=== PATIENT | male | born 1985 | race African-American/Black ===

== ENCOUNTER 2022-12-28 02:58 | Emergency (ER) | payer OTHER ==
[~2022-12-28] VITALS: Ht 185.4 cm; Wt 95.0 kg
[2022-12-28 04:16] LABS: APPEARANCE,URINE CLEAR (CLEAR); BILIRUBIN,URINE NEGATIVE (NEGATIVE); COLOR,URINE LIGHT YELLOW (YELLOW); GLUCOSE, URINE (UA) NEGATIVE (NEGATIVE); KETONES,URINE NEGATIVE (NEGATIVE); LEUKOCYTE ESTERASE ,URINE NEGATIVE (NEGATIVE); NITRATE,URINE NEGATIVE (NEGATIVE); OCCULT BLOOD,URINE NEGATIVE (NEGATIVE); PH,URINE 5.5 (5.0-8.0); PROTEIN,URINE 30-70 mg/dL (NEGATIVE); SPECIFIC GRAVITIY, URINE 1.016 (1.003-1.030); UROBILINOGEN,URINE <=1.0 mg/dL (<=1.0)
[2022-12-28 04:19] LABS: BACTERIA,URINE None Seen /HPF (None Seen); RBC,URINE None Seen /HPF (0-2); SQUAMOUS EPITHELIAL CELL,UR Rare /LPF (None Seen); WBC,URINE None Seen /HPF (0-5)
[2022-12-28] MEDS ORDERED: LIDOCAINE/PF 1% 2 ML VIAL IM ONE (04:30)
[2022-12-28] MEDS ORDERED: CefTRIAXone SODIUM 1 GM/VIAL IM ONE (04:30)
[2022-12-28] MEDS ORDERED: IBUPROFEN 800 MG TABLET PO ONE (04:30)
[2022-12-28 06:40] VITALS: TEMP 96.8
[2022-12-28 08:00] VITALS: BP 142/85; PULSE 88; RESP 18
[2022-12-28] MEDS ORDERED: DOXY-354 PO (08:36)
== END 2022-12-28 09:07 | disposition home or self-care (01) ==
LOC: EMS 03:02
DX: N49.8 Inflammatory disorders of other specified male genital organs (principal)
CPT/HCPCS: 99285; 81001; 87086; 87186; 76870; 96372; J0696; J3490

== ENCOUNTER 2023-01-26 15:55 | Emergency (ER) | payer MEDICAID, OTHER ==
[~2023-01-26] VITALS: Ht 185.4 cm; Wt 84.1 kg
[~2023-01-26 15:55] MED LIST: DOXY-354 PO
[2023-01-26 17:46] LABS: BASOPHILS % (AUTO) 0.8 % (0.0-2.0); EOSINOPHILS % (AUTO) 10.1 % (1.0-6.0); HEMATOCRIT 38.2 % (41-53); HEMOGLOBIN 13.1 g/dL (13.5-17.5); LYMPHOCYTES # (AUTO) 1.3 K/uL (1.0-4.8); LYMPHOCYTES % (AUTO) 27.4 % (22.0-44.0); MEAN CORPUSCULAR HEMOGLOBIN 32.2 pg (26.0-34.0); MEAN CORPUSCULAR HGB CONC 34.3 G/dL (31.0-37.0); MEAN CORPUSCULAR VOLUME 94 fL (80-100); MONOCYTES # (AUTO) 0.2 K/uL (0.1-1.0); MONOCYTES % (AUTO) 5.2 % (2.0-9.0); NEUTROPHILS # (AUTO) 2.6 K/uL (1.8-7.7); NEUTROPHILS % (AUTO) 56.5 % (40.0-70.0); PLATELET COUNT (AUTO) 301 K/uL (150-450); RED BLOOD CELL COUNT(AUTO) 4.08 MIL/uL (4.50-5.90); RED CELL DISTRIBUTION WIDTH 14.2 % (11.5-14.5); WHITE BLOOD COUNT (AUTO) 4.6 K/uL (4.5-11.0)
[2023-01-26 17:53] LABS: ANION GAP 7 mmol/L (8-16); CALCIUM, TOTAL 9.3 mg/dL (8.8-10.5); CARBON DIOXIDE 27 mmol/L (22-29); CHLORIDE 103 mmol/L (98-107); CREATININE 1.03 mg/dL (0.60-1.30); GLOMERULAR FILTR. RATE CALC > 60 mL/min (>60); GLUCOSE,RANDOM 80 mg/dL (70-110); POTASSIUM 3.5 mmol/L (3.5-5.1); SODIUM SERUM 137 mmol/L (136-145); UREA NITROGEN, BLOOD 12 mg/dL (7-18)
[2023-01-26 17:59] LABS: ALANINE AMINOTRANSFERASE 30 U/L (12-78); ALBUMIN 3.5 g/dL (3.4-5.0); ALKALINE PHOSPHATASE 74 U/L (46-116); ASPARTATE AMINOTRANSFERASE 23 U/L (15-37); BILIRUBIN,TOTAL 0.3 mg/dL (0.1-1.0); TOTAL PROTEIN, SERUM 7.6 g/dL (6.4-8.2)
[2023-01-26] MEDS ORDERED: TraMADol HCL 50 MG TABLET PO ONE (19:00)
[2023-01-26] MEDS ORDERED: KETOROLAC TROMETHAMINE 30 MG/ML VIAL IM ONE (19:00)
[2023-01-26 19:30] VITALS: BP 133/75; PULSE 75; RESP 16; TEMP 97.3
[2023-01-26] MEDS ORDERED: DOXY-354 PO (20:04)
[2023-01-26] MEDS ORDERED: NYST30CR9 TP (20:05)
[2023-01-28] MEDS ORDERED: NYST30CR9 TP ×2 (18:21→18:26)
[2023-01-28] MEDS ORDERED: DOXY-354 PO ×2 (18:21→18:26)
[2023-01-28] MEDS ORDERED: DOXY50 PO (18:26)
== END 2023-01-26 21:21 | disposition home or self-care (01) ==
LOC: EMS 15:55
DX: R07.9 Chest pain, unspecified (principal); B35.6 Tinea cruris; N43.3 Hydrocele, unspecified
CPT/HCPCS: 99285; 71045; 80053; 85025; 36415; 76870; 96372; J1885